=== PATIENT | male | born 1945 | race Hispanic/Latino ===

== ENCOUNTER 2021-06-30 10:10 | Outpatient (CLI) | payer MEDICARE, MEDICAID ==
[2021-06-30] MEDS ORDERED: Iopamidol 370 76% 100 ML VIAL ONE (14:44)
== END 2021-06-30 10:11 | disposition home or self-care (01) ==
LOC: CT 10:10
PROVIDERS: ATTEND Urology
DX: C61 Malignant neoplasm of prostate (principal); N40.0 Benign prostatic hyperplasia without lower urinary tract symptoms
CPT/HCPCS: 74177; 78306; A9503

== ENCOUNTER 2021-07-10 14:42 | Outpatient (CLI) | payer MEDICARE, MEDICAID | END 2021-07-10 14:43 | disposition home or self-care (01) | LOC: SCSRAD 14:42 | PROVIDERS: ATTEND Student in an Organized Health Care Education/Training Program | DX: M25.511 Pain in right shoulder (principal); M25.512 Pain in left shoulder; M19.011 Primary osteoarthritis, right shoulder; M19.012 Primary osteoarthritis, left shoulder ==